=== PATIENT | male | born 1950 | race Caucasian/White ===

== ENCOUNTER 2020-02-08 13:20 | Emergency (ER) | payer MEDICARE, SELFPAY ==
[2020-02-08 13:29] VITALS: BP 153/85; PULSE 95; RESP 16; TEMP 36.8; O2SAT 98
--- NOTE | 2020-02-08 13:38 | ED.SKABFB ---
HPI - Skin/Abscess/Foreign Bdy General Chief complaint: Skin/Abscess/Foreign Body Stated complaint: rash on body Time Seen by Provider: 02/08/20 13:38 Source: patient Mode of arrival: ambulatory Limitations: no limitations History of Present Illness HPI narrative: Dakotah Toney is a 69 yo male with a PMH of HTN, GERD, diabetes, high cholesterol, who comes with a rash that has been present since cutting grass on Sat, Rash is pruritic. ` Related Data Home Medications Medication Instructions Recorded Confirmed amlodipine 5 mg PO DAILY 02/08/20 02/08/20 carvedilol 3.125 mg PO BID 02/08/20 02/08/20 glipizide 10 mg PO BID 02/08/20 02/08/20 lisinopril-hydrochlorothiazide 2 tablet PO DAILY 02/08/20 02/08/20 lovastatin 20 mg PO DAILY 02/08/20 02/08/20 metformin 1,000 mg PO BID 02/08/20 02/08/20 omeprazole 20 mg PO DAILY 02/08/20 02/08/20 pioglitazone 45 mg PO DAILY 02/08/20 02/08/20 Allergies Allergy/AdvReac Type Severity Reaction Status Date / Time No Known Allergies Allergy Verified 02/08/20 13:39 Review of Systems Review of Systems: Narrative: CONSTITUTIONAL: Denies fever, chills, sweats. EYES: Denies visual changes, redness, discharge. ENT: Denies rhinorrhea, congestion, sore throat, otalgia. CARDIOVASCULAR: Denies chest pain, palpitations, edema. RESPIRATORY: Denies dyspnea, wheezing, cough GASTROINTESTINAL: Denies abdominal pain, nausea, vomiting, diarrhea. GENITOURINARY: Denies dysuria, hematuria, abnormal discharge SKIN: Rash on R arm, small spots of bilateral legs, mid back, pruritic NEUROLOGIC: Denies numbness, or focal weakness. PSYCHIATRIC: Denies anxiety or depression. [facility] Family History Family History Other Diabetes mellitus Heart disease Hypertension Social History Social History (Updated 02/08/20 @ 13:46 by Candace Lopez CNP) Smoking status: Never smoker Alcohol intake: current Comments At time of signature, I agree with nursing past medical, surgical, social and family history. There is no relevant family history pertinent to the presenting complaint. BP noted to be elevated. on BP meds Exam Narrative: Exam Narrative: GENERAL: This is a well-nourished, well-developed patient, in mild distress. speaks with juvenile r HEAD: normocephalic, atraumatic. EYES: Sclera clear/white. Vision is grossly intact. EARS: External ears normal, . Hearing grossly intact. NOSE: External nose normal without nasal discharge, nares without redness, no rhinorrhea. THROAT: Mucous membranes moist, NECK: Neck supple, CARDIOVASCULAR: Regular rate and rhythm without murmurs, gallops, or rubs. RESPIRATORY: Clear to auscultation. Breath sounds equal bilaterally. No wheezes, rales, or rhonchi. GASTROINTESTINAL: Abdomen soft, non-tender, SKIN: warm, intact with no suspicious lesions or rash, macular papular erythematous rash w itching NEURO: awake, alert, and oriented to person, place and time. There were no obvious focal neurologic abnormalities. Steady gait EXTREMITIES: Normal range of motion. BACK: Nontender without deformity Course Course Emergency Course: Started on Medrol Dosepak, directions to use hydrocortisone cream or calamine, difficulty thinking tools since contact with plant Vital Signs Vital signs: Vital Signs Temperature 98.2 F 02/08/20 13:29 Pulse Rate 95 02/08/20 13:29 Respiratory Rate 16 02/08/20 13:29 Blood Pressure 153/85 H 02/08/20 13:29 Pulse Oximetry 98 02/08/20 13:29 Temperature 98.2 F 02/08/20 13:29 Pulse Rate 95 02/08/20 13:29 Respiratory Rate 16 02/08/20 13:29 Blood Pressure 153/85 H 02/08/20 13:29 Pulse Oximetry 98 02/08/20 13:29 MDM - Skin/Abscess/Foreign Bdy Differential Diagnosis Differential diagnosis: Likely abscess of skin or subcutaneous tissue, urticaria and contact dermatitis Discharge Plan Discharge Clinical Impression: Contact dermatitis Qualifiers: Conta
== END 2020-02-08 13:55 | disposition home or self-care (01) ==
PROVIDERS: Emergency Provider Nurse Practitioner; PCP Family Medicine
DX: L23.7 Allergic contact dermatitis due to plants, except food (principal); I10 Essential (primary) hypertension; K21.9 Gastro-esophageal reflux disease without esophagitis; E11.9 Type 2 diabetes mellitus without complications; E78.00 Pure hypercholesterolemia, unspecified; Z79.84 Long term (current) use of oral hypoglycemic drugs
CPT/HCPCS: 99213; G0463

== ENCOUNTER 2023-08-28 15:10 | Emergency (ER) | payer MEDICARE, SELFPAY ==
[2023-08-28 15:22] VITALS: BP 121/62; PULSE 86; RESP 16; TEMP 36.6; O2SAT 96
--- NOTE | 2023-08-28 16:43 | ED.NAVMDI ---
HPI - Nausea/Vomiting/Diarrhea General Chief complaint: Nausea/Vomiting/Diarrhea Stated complaint: Diarrhea Time Seen by Provider: 08/28/23 16:43 Source: patient, RN notes reviewed and old records reviewed Mode of arrival: ambulatory Limitations: no limitations History of Present Illness HPI Narrative: 72-year-old male who presents to [facility] with complaints of episodes of diarrhea since April after having a colonoscopy. Patient states he went to his physician's office on August 18 and told them of having this diarrhea and reports no orders were received in regards.Patient reports that the reason he had colonoscopy was because of some left upper abdominal pain, he reports that he also had CT scan of his abdomen. He reports that he has taken some Imodium for his diarrhea but diarrhea continues. Patient reports that he has not contacted his GI doctor with his complaints.Patient denies any abdominal pain nausea or vomiting or any fevers.He reoirts 5 diarrhea stools today after he eats, states diarrhea at times is yellow colored. MD elicited complaint: diarrhea (persistent) Onset (ago): month(s) (intermittent since April after having colonoscopy) Description of diarrhea: watery, semi-solid and other (yellowish at times) Associated nausea: No Associated abdominal pain: No Treatment prior to arrival: immodium Related Data Home Medications Medication Instructions Recorded Confirmed amlodipine 5 mg tablet 5 mg PO DAILY 02/08/20 08/28/23 carvedilol 3.125 mg tablet 3.125 mg PO BID 02/08/20 08/28/23 glipizide 10 mg tablet 10 mg PO BID 02/08/20 08/28/23 lisinopril 20 2 tablet PO DAILY 02/08/20 08/28/23 mg-hydrochlorothiazide 12.5 mg tablet lovastatin 20 mg tablet 20 mg PO DAILY 02/08/20 08/28/23 metformin 1,000 mg tablet 1,000 mg PO BID 02/08/20 08/28/23 omeprazole 20 mg capsule,delayed 20 mg PO DAILY 02/08/20 08/28/23 release citalopram 10 mg tablet 10 mg PO DAILY 08/28/23 08/28/23 famotidine 20 mg tablet 20 mg PO DAILY 08/28/23 08/28/23 furosemide 20 mg tablet 20 mg PO DAILY 08/28/23 08/28/23 pioglitazone 30 mg tablet 30 mg PO DAILY 08/28/23 08/28/23 Allergies Allergy/AdvReac Type Severity Reaction Status Date / Time No Known Allergies Allergy Verified 08/28/23 15:15 Review of Systems Review of Systems: CONSTITUTIONAL: Denies fever, chills, or sweats. ENT: Denies rhinorrhea, congestion, sore throat, or otalgia. CARDIOVASCULAR: Denies chest pain, palpitations, or edema. RESPIRATORY: Denies cough or dyspnea. GASTROINTESTINAL: Reports no abdominal pain, no nausea, vomiting, persistent diarrhea. GENITOURINARY: Denies dysuria or hematuria. SKIN: Denies rash or itching. MUSCULOSKELETAL: Denies back pain, joint pain, or myalgia. NEUROLOGIC: Denies headache, numbness, or weakness. All systems reviewed & are unremarkable except as noted in HPI and below PMFSH Past Medical History Medical History (Updated 08/31/23 @ 11:06 by Cindy Parker NP) Diabetes GERD (gastroesophageal reflux disease) HTN (hypertension) Hyperlipidemia Surgical History Surgical History (Updated 08/31/23 @ 11:01 by Cindy Parker NP) H/O right wrist surgery orthopedic X3 Family History Family History Other Diabetes mellitus Heart disease Hypertension Social History Social History Smoking status: Never smoker Alcohol intake: current Comments At time of signature, agree with nursing past medical, surgical, social and family history. There is no relevant family history pertinent to the presenting complaint Exam Narrative: GENERAL: Well-appearing, well-nourished, and in no acute distress. HEAD: Normocephalic, atraumatic. EYES: PERRLA, conjunctivae clear, and EOMI. ENT: Nares clear. Mucous membranes moist. Oropharynx without edema, erythema, or lesions. Tonsils not enlarged and without exudate.
== END 2023-08-28 17:00 | disposition home or self-care (01) ==
PROVIDERS: Emergency Provider Registered Nurse; PCP Family Medicine
DX: R19.7 Diarrhea, unspecified (principal); E11.9 Type 2 diabetes mellitus without complications; K21.9 Gastro-esophageal reflux disease without esophagitis; I10 Essential (primary) hypertension; E78.5 Hyperlipidemia, unspecified
CPT/HCPCS: 99203; G0463